=== PATIENT | male | born 1975 | race Caucasian/White ===

== ENCOUNTER 2019-05-26 17:57 | Emergency (ER) | payer SELFPAY ==
[2019-05-26 17:59] VITALS: BP 147/80; PULSE 88; RESP 16; TEMP 36.8; O2SAT 97
--- NOTE | 2019-05-26 18:05 | ED.GENADUL_ITS ---
Discharge Plan Disposition Patient Disposition: HOME Condition: Stable Discharge Details Chief Complaint: Abd Prob Clinical Impression: Abscess Primary Care Provider: Ifeanyi Strickland ED Provider: Bob Flores Home Meds and New Rx's Prescriptions: New sulfamethoxazole-trimethoprim [Bactrim DS] 800-160 mg tablet 1 tab PO BID Qty: 14 RF: 0 Discharge Instructions Instructions: Abscess (ED) Additional Instructions: You have a very small fluid collection that is likely an infection follow up with your primary care provider within 1 week if you feel more ill, have severe worsening pain or fevers return to the emergency department Medical Decision Making <Merlin Cuevas MD - Last Filed: 05/26/19 19:45> 43-year-old male presents from home complaining of left groin painful lump. 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 He denies significant strain. He has not had a fever or vomiting. He is slightly hypertensive. Left groin reveals mass along the inguinal canal. Differential diagnosis includes inguinal hernia, mass. Screening laboratories obtained and CT scan ordered. Laboratories reveal a normal CBC, unremarkable chemistries. Urinalysis is negative. At the time of this dictation/change of shift, patient CT images are pending and the case was signed out to Dr. Flores please see his note regarding details of final impression. <Bob Flores MD - Last Filed: 05/26/19 21:47> Patient's ct shows small [id number] fluid collection vs abscess has mild pain and no air to suggest nec fasc. Not large enough to drain. Will place on antibiotics and have him f/u with pcp for recheck within a week, return precautions given Imaging Data Radiologic Study: Attestation: I personally reviewed and interpreted this imaging study as follows: Imaging: CT Scan Radiologist's impression: IMPRESSION: 1. Small subcutaneous fluid collection or abscess in the left inguinal crease inferiorly. See series 4, image 98. This is also evident on coronal series 6, image 35. 2. Old granulomatous splenic calcifications incidentally noted. HPI <Merlin Cuevas MD - Last Filed: 05/26/19 19:45> General Mode of arrival: ambulatory . Date/Time Provider Initiated Documentation: 05/26/19 17:57 . Limitations to Documentation: no limitations . Information obtained by: patient . History of Present Illness 43 year old M presents to the emergency department with the chief complaint of R groin lump, described as moderate, Quality is described as dull, and is localized to the left. Patient reports no radiation. Patient started experiencing this hour(s) and it has been constant. No relieving factors improve symptom(s), No exacerbating factors reported . Patient did receive the following treatments prior to arrival, none Related Data Home Medications Medication Instructions Recorded Confirmed sulfamethoxazole-trimethoprim 1 tab PO BID #14 tab 05/26/19 [Bactrim DS] Previous Rx's Medication Instructions Recorded sulfamethoxazole-trimethoprim 1 tab PO BID #14 tab 05/26/19 [Bactrim DS] Allergies Allergy/AdvReac Type Severity Reaction Status Date / Time clindamycin Allergy Unknown abdominal Unverified 05/26/19 18:03 pain codeine AdvReac Intermediate nausea/vomo Unverified 05/26/19 18:03 ting General Stated Complaint: Abd Prob ABHISHEK: 3 Review of Systems <Merlin Cuevas MD - Last Filed: 05/26/19 19:45> Narrative: 6 systems reviewed and otherwise negative. PFSH <Merlin Cuevas MD - Last Filed: 05/26/19 19:45> Social History Smoking/Tobacco Use Status: Current every day Drug use: Never Do you feel safe in your relationship?: Yes Exam <Merlin Cuevas MD - Last Filed: 05/26/19 19:45> Narrative Exam Narrative: GEN: awake, alert, oriented 3. Pleasant, well groomed, interactive. HEAD: Normocephalic, atraumatic ENT: Mucous membranes moist, oropharynx unremarkable, External ear exam unremarkable EYES: PERRL, EOMI NECK: Full ROM, no NETTA, no menigismus CHEST/RESP: Nontender, clear to auscultation bilateral, no wheeze/rhonchi/rales CARDIOVASCULAR: RRR, no murmur, rub corina. 2+ Rad pulse bilateral ABDOMEN: Soft, minimal lower quadrant tenderness without rebound, left groin mass that is palpable along the course of the inguinal canal. +Bowel sounds EXT: Full ROM, no edema, no rash Neuro: Grossly normal neurologic exam, conversant, interactive. Psych: Speech fluent, thoughts congruent, affect normal Course <Merlin Cuevas MD - Last Filed: 05/26/19 19:45> Vital Signs Vital signs: Vital Signs Temperature 36.8 C 05/26/19 17:59 Pulse 88 05/26/19 17:59 Respiratory Rate 16 05/26/19 17:59 Blood Pressure 147/80 H 05/26/19 17:59 Pulse Oximetry 97 05/26/19 17:59 Temperature 36.8 C 05/26/19 17:59 Temperature Source Skin 05/26/19 17:59 Pulse 88 05/26/19 17:59 Respiratory Rate 16 05/26/19 17:59 Blood Pressure 147/80 H 05/26/19 17:59 Blood Pressure Position Sitting 05/26/19 17:59 Pulse Oximetry 97 05/26/19 17:59 Oxygen Delivery Method Room Air 05/26/19 17:59 Oxygen Flow Rate 0 05/26/19 17:59 Pain Level 10 05/26/19 17:59 Comment 05/26/19 17:59 Sign Out <Merlin Cuevas MD - Last Filed: 05/26/19 19:45> Sign Out Data: Sign Out Comment: followup CT Last updated by Merlin Cuevas MD at 05/26/19 19:53
[2019-05-26 18:21] LABS: Bilirubin Negative (Negative); Blood Negative (Negative); Clarity Clear (Clear); Glucose Negative (Negative); Ketones Negative (Negative); Leukocyte Esterase Negative (Negative); Nitrite Negative (Negative); Specific Gravity <= 1.005 (1.005-1.025); Urobilinogen 0.2 EU/dL (Up TO 0.2)
[2019-05-26 18:52] LABS: Abs Immature Grans 0.02 k/cumm (0.0-0.09); Absolute Basophil Count 0.02 k/cumm (0.0-0.2); Absolute Eosinophil Count 0.05 k/cumm (0.0-0.7); Absolute Lymphocyte Count 2.07 k/cumm (1.2-3.4); Absolute Monocyte Count 0.51 k/cumm (0.11-0.7); Absolute Neutrophil Count 6.87 k/cumm (1.2-6.7); Basophils % 0.2; Eosinophils % 0.5; HCT 42.8 % (40.0-50.0); HGB 14.5 g/dL (13.5-17.5); Immature Grans % 0.2 %; Lymphocytes % 21.7; Mean Corp. HGB Concentration 33.9 g/dL (32.0-36.0); Mean Corpuscular Volume 88.4 fL (80-95); Mean Platelet Volume 9.9 fL (8.0-11.0); Monocytes % 5.3; Neutrophils % 72.1; Platelet Count 316 x1000/uL (130-400); RBC 4.84 m/cumm (4.50-6.00); RBC Distribution Width 13.2 % (11.8-14.1); White Blood Cell Count 9.54 k/cumm (4.4-10.8)
[2019-05-26] MEDS: Normal Saline 1,000 ML 125 ML IV (19:00)
[2019-05-26 19:11] LABS: ALT 19 U/L (16-63); AST 17 U/L (15-37); Albumin 3.8 g/dL (3.4-5.0); Alkaline Phosphatase 83 U/L (46-116); Anion Gap 8.3 mmol/L (3-11); BUN 9 mg/dL (7-18); Bilirubin, Total 0.6 mg/dL (0.2-1.0); CO2 28.7 mmol/L (21.0-32.0); CREATININE 0.87 mg/dL (0.70-1.30); Calcium 8.6 mg/dL (8.5-10.1); Chloride 103 mmol/L (98-107); Glucose 91 mg/dL (74-106); Potassium 3.8 mmol/L (3.5-5.1); Sodium 140 mmol/L (136-145); Total Protein 7.3 g/dL (6.4-8.2)
[2019-05-26] MEDS: Ketorolac 15 MG/ML VIAL IVP (19:15)
[2019-05-26] MEDS: Normal Saline Flush 10 ML SYR IVP ×2 (19:26→20:46)
--- NOTE | 2019-05-26 20:35 | DI.CT_ITS ---
EXAM: CT ABDOMEN PELVIS W CLINICAL HISTORY: Left inguinal painful mass. TECHNIQUE: Imaging Protocol: Axial computed tomography images with coronal and sagittal reformatted images were created and reviewed CONTRAST MATERIAL: Intravenous: Omnipaque 350 Contrast volume:100 ml Oral: yes COMPARISON: CHEST ABD PELVIS WO CONTRAST from 04/01/2011 FINDINGS: ABDOMEN: Lung Bases: Normal where visualized. Liver: Normal density. No measurable mass. Gallbladder and biliary tract: No radiodense calculus or dilation. Pancreas: Normal density, no abnormal calcifications or inflammatory process. Spleen: Calcified granulomas. Kidneys: Normal size, contour and axis. No radiodense stones or obstructive uropathy. No masses seen. Adrenal glands: No masses seen. Abdominal Aorta: Abdominal portion non-dilated. PELVIS: Bladder: Symmetric distention, no gross wall thickening. Bowel: No obstruction or bowel wall thickening. Peritoneal cavity: No ascites, collection or mesenteric inflammatory response. Bones: Within normal limits. Reproductive organs: Within normal limits. Lymph nodes: Unremarkable. There is a 2.2 x 1.9 centimeter fluid collection with rim enhancement in the subcutaneous fat of the left inguinal crease with some surrounding inflammation. Findings are consistent with an abscess. Impression: 2.2 centimeters subcutaneous collection in the left inguinal crease, consistent with a small abscess. No abnormality is seen within the abdomen or pelvis. DATA REPOSITORY: All CT scans at this facility are submitted to the National Radiology Data Registry (NRDR) Dose Index Registry (DIR) with the [employer] ([employer]). RADIATION OPTIMIZATION: All CT scans at this facility use at least one of these dose optimization te chniques: automated exposure control; mA and/or kV adjustment per patient size (includes targeted exa ms where dose is matched to clinical indication); or iterative reconstruction.
[2019-05-26] MEDS: Omnipaque 350 MG/ML 100 ML BTL IJ (20:44)
[2019-05-26] MEDS: Breeza Beverage 473 ML BTL PO ×2 (20:45→20:46)
[2019-05-26] MEDS: Omnipaque 350 MG/ML 50 ML BTL IJ (20:45)
[2019-05-26] MEDS: Normal Saline - Diluent 50 ML VIAL IV (20:46)
--- NOTE | 2019-05-26 21:09 | DI.VRAD_ITS ---
PROCEDURE INFORMATION: Exam: CT Abdomen And Pelvis With Contrast Exam date and time: 05/26/2019 8:36 PM Age: 43 years old Clinical indication: Abdominal pain; Localized; Left lower quadrant (llq); Additional info: PT feels pain and swelling in left lower inguinal/groin region TECHNIQUE: Imaging protocol: Computed tomography of the abdomen and pelvis with intravenous contrast. Radiation optimization: All CT scans at this facility use at least one of these dose optimization techniques: automated exposure control; mA and/or kV adjustment per patient size (includes targeted exams where dose is matched to clinical indication); or iterative reconstruction. Contrast material: [id number]; Contrast volume: 100 ml; Contrast route: IV RAC 18G; Other contrast: Oral, [id number], 50; COMPARISON: No relevant prior studies available. FINDINGS: Liver: Normal. No mass. Gallbladder and bile ducts: Normal. No calcified stones. No ductal dilation. Pancreas: Normal. No ductal dilation. Spleen: Old granulomatous splenic calcifications. Adrenals: Normal. No mass. Kidneys and ureters: Normal. No hydronephrosis. Stomach and bowel: Unremarkable. No obstruction. No mucosal thickening. Appendix: No evidence of appendicitis. Intraperitoneal space: Unremarkable. No free air. No significant fluid collection. Vasculature: Unremarkable. No abdominal aortic aneurysm. Lymph nodes: Unremarkable. No enlarged lymph nodes. Bladder: Unremarkable as visualized. Reproductive: Unremarkable as visualized. Bones/joints: Unremarkable. No acute fracture. Soft tissues: Inferior left inguinal subcutaneous fluid collection measuring 22 x 19 mm. This may represent a small subcutaneous abscess. Minor surrounding fatty inflammation. This is best seen on series 4, image 98. Coronal series 6, image 35. No inguinal hernia. IMPRESSION: 1. Small subcutaneous fluid collection or abscess in the left inguinal crease inferiorly. See series 4, image 98. This is also evident on coronal series 6, image 35. 2. Old granulomatous splenic calcifications incidentally noted. Dictated and Authenticated by: Jaren Montano MD. Ordering:CATHY Boyer MD
[2019-05-26] MEDS: Sulfameth/Trimeth DS TAB 1 TAB PO (21:54)
[2019-05-26] MEDS: Cephalexin 500 MG CAP PO (21:55)
--- NOTE | 2019-05-29 03:32 | NUR.NOTE ---
Nursing Note: Referral faxed to PCP for follow up. Cassie Rosas.
== END 2019-05-26 22:00 | disposition home or self-care (01) ==
PROVIDERS: Emergency Medicine; Emergency Provider Emergency Medicine; PCP Family Medicine
DX: L02.214 Cutaneous abscess of groin (principal); R10.32 Left lower quadrant pain
CPT/HCPCS: 36415; 80053; 96361; 96374; 99285; 74177; 81003; 85025; 99284; J1885; J3490; Q9967

== ENCOUNTER 2020-04-14 02:59 | Outpatient (CLI) | payer MEDICAID, SELFPAY ==
--- NOTE | 2020-04-14 16:16 | DI.RAD_ITS ---
EXAM: XR SHOULDER RT COMPLETE 2+V CLINICAL HISTORY: RT SHOULDER PAIN, M25.511. TECHNIQUE: 2D digital imaging was performed. COMPARISON: CR ACROMIO CLAVICULAR JOINTS from 01/04/2015 FINDINGS: There is no evidence of fracture or dislocation no abnormal soft tissue calcifications. Subacromial space appears unremarkable. No osseous lesions. AC joint unremarkable. No evidence of os acromial. Sign rib IMPRESSION: No significant radiographic findings. DATA REPOSITORY: RADIATION DOSE DELIVERED:
--- NOTE | 2020-04-14 16:23 | DI.VRAD_ITS ---
PROCEDURE INFORMATION: Exam: XR Right Shoulder Exam date and time: 04/14/2020 8:46 AM Age: 44 years old Clinical indication: Pain; Shoulder; Right TECHNIQUE: Imaging protocol: XR Right shoulder. Views: 2 or more views. COMPARISON: CR RIGHT SHOULDER COMPLETE 01/04/2015 9:45 AM FINDINGS: Bones/joints: Degenerative changes in the acromioclavicular joint and glenohumeral joint. There is no evidence of acute fracture.There is no evidence of malalignment or dislocation. Soft tissues: Normal. IMPRESSION: There is no evidence of acute fracture.There is no evidence of malalignment or dislocation. Dictated and Authenticated by: Louie Winkler MD. Ordering:SLICK Hager MD
== END 2020-04-14 03:19 ==
PROVIDERS: PCP Family Medicine; Visit Provider Physician Assistant
DX: M25.511 Pain in right shoulder (principal)
CPT/HCPCS: 73030

== ENCOUNTER 2020-04-26 01:59 | Outpatient (CLI) | payer MEDICAID, SELFPAY ==
--- NOTE | 2020-04-26 | DI.MRI_ITS ---
EXAM: MR UPPER JOINT RT WO CLINICAL HISTORY: RT SHOULDER PAIN, M25.511. TECHNIQUE: Multiplanar multisequence MRI was performed. COMPARISON: Plain films dated 14 April 2020 FINDINGS: A the AC joint shows mild degenerative changes with mild inferior spurring. There is mild spurring at the tip of the acromion. There is a small amount of fluid in the subacromial subdeltoid bursa. t here is a small focal tear in the anterior, distal aspect of the supraspinatus tendon. There is thic kening of the supraspinatus tendon. There is no muscle atrophy. The infraspinatus, subscapularis, t eres minor and biceps tendons appear intact. Labrum is within normal limits. There is some edema in the humeral head seen anteriorly near the greater tuberosity. This could represent a bone contusion or represent degenerative changes. IMPRESSION: Small focal tear in the anterior supraspinatus tendon. Question of a contusion of the anterior humer al head. DATA REPOSITORY:
== END 2020-04-26 02:00 ==
LOC: DI 01:59
PROVIDERS: PCP Family Medicine; Visit Provider Physician Assistant
DX: M75.101 Unspecified rotator cuff tear or rupture of right shoulder, not specified as traumatic (principal)
CPT/HCPCS: 73221

== ENCOUNTER 2021-03-11 14:54 | Emergency (ER) | payer MEDICAID, SELFPAY ==
[2021-03-11 15:05] VITALS: BP 128/85; PULSE 90; RESP 18; TEMP 36.8; O2SAT 99
[2021-03-11] MEDS: Ibuprofen 600 MG TAB PO (16:05)
[2021-03-11] MEDS: oxyCODONE 5 MG TAB PO (16:30)
--- NOTE | 2021-03-11 16:34 | ED.GENADUL_ITS ---
Discharge Plan Disposition Patient Disposition: HOME Condition: Improving Discharge Details Clinical Impression: Abscess of perineum Primary Care Provider: Ifeanyi Strickland ED Provider: Orly Hart Home Meds and New Rx's Prescriptions: New cephalexin 500 mg capsule 500 mg PO QID 7 Days Qty: 28 RF: 0 sulfamethoxazole-trimethoprim [Bactrim DS] 800-160 mg tablet 2 tab PO BID 7 Days Qty: 28 RF: 0 Continued acetaminophen 500 mg Tablet 1,000 mg PO PRN PRNRF: 0 Discharge Instructions Instructions: Abscess (ED) Additional Instructions: You were noted to have an abscess on exam today. An abscess is a collection of pus that is best treated with incision and drainage which was performed in the emergency department today. Due to the surrounding redness in the area of the abscess, you are also being treated with oral antibiotics. A prescription for 2 antibiotics have been sent electronically to your pharmacy. You were also sent home with antibiotics to take until you can waste picker your prescriptions tomorrow. Take both of these antibiotics as directed until finished. Alternate tylenol and motrin as needed and directed for pain. Return to the emergency department in 2 days for wound check and packing removal. Return immediately to the emergency department if you develop any worsening or new concerning symptoms. Discharge Data Discharge Date/Time-TO BE ENTERED AT DEPARTURE: 03/11/21 16:53 Discharge Physician: Orly Hart Medical Decision Making 45-year-old male presents with boil in his groin for 4 days. There is a 2 x 2 centimeter fluctuant abscess with 3 cm area of surrounding erythema noted to the right side of the perineum right below the scrotum. There is no evidence of necrotizing fasciitis. Patient appears uncomfortable but nontoxic. Do not see indication for lab work or imaging at this time. Patient was given a dose of ibuprofen and oxycodone for his pain. The area was cleaned with Betadine and anesthetized with 10 cc of lidocaine with epinephrine. The area of fluctuance was incised with a #11 blade with large amount of drainage and immediate relief of pain. The area was irrigated with normal saline and packed with 1/4 iodoform gauze. Dressing placed and remained clean dry and intact. Patient has an adverse GI reaction to clindamycin. Will cover with Keflex and Bactrim of which she was given doses here and bottles to go and prescriptions sent electronically to his pharmacy. Advised to return to the ED in 2 days for packing removal and wound check. Advised to keep the area clean and dry and take antibiotics until finished. Usual and customary return precautions given prior to discharge. Medical Records Medical records reviewed: Yes I reviewed the patient's medical records. HPI General Mode of arrival: ambulatory . Date/Time Provider Initiated Documentation: 03/11/21 15:19 . Limitations to Documentation: no limitations . Information obtained by: patient . HPI Narrative: Patient is a 45-year-old male who presents with boil in his groin for the past 4 days. He states he has been soaking in Epson salt and tried to pop the area himself but without relief and is getting progressively worse. 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 He denies any shaving in this area. He denies any fever, nausea, vomiting, abdominal pain, urinary symptoms, constipation or diarrhea. He denies any change in his bowel or bladder habits. Related Data Home Medications Medication Instructions Recorded Confirmed acetaminophen 1,000 mg PO PRN PRN 03/11/21 03/11/21 cephalexin 500 mg PO QID 7 Days #28 cap 03/11/21 sulfamethoxazole-trimethoprim 2 tab PO BID 7 Days #28 tab 03/11/21 [Bactrim DS] Previous Rx's Medication Instructions Recorded cephalexin 500 mg PO QID 7 Days #28 cap 03/11/21 sulfamethoxazole-trimethoprim 2 tab PO BID 7 Days #28 tab 03/11/21 [Bactrim DS] Allergies Allergy/AdvReac Type Severity Reaction Status Date / Time clindamycin Allergy Unknown abdominal Unverified 03/11/21 15:08 pain codeine AdvReac Intermediate nausea/vomo Unverified 03/11/21 15:08 ting General Stated Complaint: Cellulitis ABHISHEK: 4 Review of Systems All systems reviewed & are unremarkable except as noted in HPI and below Constitutional Constitutional: Reports as per HPI, Denies chills and Denies fever(s) Eyes Eyes: Denies blurry vision ENT Ears, Nose, Mouth, and Throat: Denies dizziness, Denies sore throat and Denies throat swelling Cardiovascular Cardiovascular: Denies chest pain and Denies dyspnea Respiratory Respiratory: Denies cough and Denies dyspnea Gastrointestinal Gastrointestinal: Denies abdominal pain, Denies diarrhea and Denies vomiting Genitourinary Genitourinary: Denies hematuria and Denies dysuria Musculoskeletal Musculoskeletal: Denies back pain and Denies numbness Integumentary/Breasts Skin/Breast: Reports lesions and Denies rash Neurologic Neurologic: Denies dizziness, Denies localized weakness and Denies numbness Allergic/Immunologic Allergic/Immunologic: Denies throat swelling PFSH All Active Problems (Updated 03/11/21 @ 17:10 by Orly Hart DO) Abscess of perineum (Acute) Medical History (Updated 03/11/21 @ 17:10 by Orly Hart DO) GERD (gastroesophageal reflux disease) Surgical History (Updated 03/11/21 @ 17:10 by Orly Hart DO) H/O wisdom tooth extraction History of surgical removal of pilonidal cyst Social History Smoking/Tobacco Use Status: Current every day Smoking risk assessment performed?: Yes Alcohol Intake: never Drug use: Never Substance use type: does not use Do you feel safe at home: Yes Do you feel safe in your relationship?: Yes Exam Const General: cooperative, healthy appearing and no acute distress HENMT Head: normal to inspection Face and sinus: normal facial exam Eyes General: appearance normal, both eyes and all related structures EOM: EOM intact bilaterally Neck Neck: normal visual inspection and No submandibular swelling Lymphatic: no lymphadenopathy noted Chest Chest: normal inspection of the chest and no tenderness Resp Effort & Inspection: normal respiratory effort and able to speak in complete sentences Auscultation: clear to auscultation bilaterally Cardio Rate: regular rate Rhythm: regular rhythm GI Inspection: normal to inspection Palpation: soft, not firm, not rigid and nontender Auscultation: normal bowel sounds Male genitals images: 1. There is an approximate 2 x 2 centimeter area of fluctuance with 3 x 3 cm area of induration and erythema that is located directly below the left scrotum within the perineum. There is no obvious pus drainage or bleeding at this time Neuro General: patient alert, patient awake and patient oriented x3 Cognition: normal cognition Speech: speech normal Motor: muscle tone normal throughout Sensory Exam: no sensory deficits noted Extrem General: normal to inspection, full ROM, capillary refill normal, no calf tenderness bilaterally and no edema Psych Appearance: grossly normal Mental Status: mental status grossly normal Speech and Movement: speech and movement normal Affect: normal affect Course Vital Signs Vital signs: Vital Signs Temperature 98.2 F 03/11/21 15:05 Pulse 90 03/11/21 15:05 Respiratory Rate 18 03/11/21 15:05 Blood Pressure 128/85 03/11/21 15:05 Pulse Oximetry 99 03/11/21 15:05 Temperature 98.2 F 03/11/21 15:05 Temperature Source Temporal Artery Scan 03/11/21 15:05 Pulse 90 03/11/21 15:05 Respiratory Rate 18 03/11/21 15:05 Respiratory Effort 03/11/21 15:23 Blood Pressure 128/85 03/11/21 15:05 Blood Pressure Position Standing 03/11/21 15:05 Pulse Oximetry 99 03/11/21 15:05 Oxygen Delivery Method Room Air 03/11/21 15:05 Oxygen Flow Rate 0 03/11/21 15:05 Procedures Abscess I/D Site: Other (Perineum) Side (if applicable): Right Local Anesthetic: Lidocaine 1% and With Epi Amount of anesthesia used (mL): 10 Technique: Incised with #11 Blade Amount of fluid expressed (mL): 8 Irrigation: Yes Packing used?: Iodoform
[2021-03-11] MEDS: Cephalexin 500 MG CAP PO (16:35)
[2021-03-11] MEDS: Sulfameth/Trimeth DS TAB 2 TAB PO (16:35)
[2021-03-11] MEDS: Cephalexin 500 MG CAP, 4 CAPS/BTL PO (16:44)
[2021-03-11] MEDS: Sulfameth/Trimeth DS, 2 TABS/BTL 1 TAB PO (16:50)
== END 2021-03-11 16:53 | disposition home or self-care (01) ==
PROVIDERS: Emergency Provider Physician Assistant; PCP Family Medicine
DX: L02.215 Cutaneous abscess of perineum (principal)
CPT/HCPCS: 10060

== ENCOUNTER 2021-04-02 07:50 | Outpatient (REF) | payer SELFPAY ==
[2021-04-02 15:18] LABS: Anion Gap 7.4 mmol/L (3-11); BUN 12 mg/dL (7-18); CO2 27.6 mmol/L (21.0-32.0); CREATININE 0.9 mg/dL (0.70-1.30); Calcium 8.9 mg/dL (8.5-10.1); Calculated LDL 141 mg/dL (<100); Chloride 104 mmol/L (98-107); Cholesterol 193 mg/dL (<200); Glucose 106 mg/dL (74-106); HDL Cholesterol 37 mg/dL (40-60); Potassium 4.3 mmol/L (3.5-5.1); Sodium 139 mmol/L (136-145); Triglyceride 79 mg/dL (<150)
== END 2021-04-02 07:51 | disposition home or self-care (01) ==
LOC: NCHCN 07:50
PROVIDERS: PCP Family Medicine; Visit Provider Physician Assistant
DX: Z00.00 Encounter for general adult medical examination without abnormal findings (principal)
CPT/HCPCS: 80048; 80061

== ENCOUNTER 2021-11-15 10:30 | Emergency (ER) | payer MEDICAID, SELFPAY ==
[2021-11-15 10:36] VITALS: BP 113/80; PULSE 85; RESP 18; TEMP 36.8; O2SAT 99
--- NOTE | 2021-11-15 12:03 | DI.RAD_ITS ---
Exam(s) XR CHEST 2V PA LATERAL EXAM: XR CHEST 2V PA LATERAL CLINICAL HISTORY: shortness of breath, r/o acute disease. TECHNIQUE: 2D digital imaging was performed. COMPARISON: CR CHEST 2 VIEWS PA,LAT from 02/28/2016 FINDINGS: 2 views: Heart size is normal. The mediastinum is not widened. Lungs are clear. No infiltrates nor pleural effusions. IMPRESSION: No acute pulmonary findings. DATA REPOSITORY: RADIATION DOSE DELIVERED:
[2021-11-15 12:21] VITALS: BP 117/78; PULSE 66; TEMP 36.4; O2SAT 97
--- NOTE | 2021-11-15 14:15 | RT.EKG_ITS ---
APPROVED REPORT Exam: Resting ECG Reason for Exam: shortness of breath Patient Location: E HR:65 bpm ECG Measurements Heart Rate 65 AXIS WI 172 P -34 QRSd 84 QRS -14 QT 371 T 32 QTc 388 Conclusion Sinus rhythm...normal P axis, V-rate 60- 99 ST elev, probable normal early repol pattern...ST elevation, age<55. Sinus. Benign early repolarization. No STEMI. I have reviewed and interpreted ECG and agree with software generated interpretation.
--- NOTE | 2021-11-15 14:33 | ED.GENADUL_ITS ---
Discharge Plan Disposition Patient Disposition: ELOPED Condition: Stable Discharge Details Chief Complaint: RespSymp Clinical Impression: Left before treatment completed, Shortness of breath Primary Care Provider: Ifeanyi Strickland ED Provider: Orly Hart Home Meds and New Rx's Prescriptions: No Action acetaminophen 500 mg Tablet 1,000 mg PO PRN PRN Discharge Data Discharge Date/Time-TO BE ENTERED AT DEPARTURE: 11/15/21 16:37 Medical Decision Making 46-year-old male with a history of GERD and chronic tobacco smoker on ~quit 3 months ago presents for shortness of breath for the past month, worse today. Vitals within normal limits. Patient arrived during high volume and acuity and referred for chest x-ray which was unremarkable. Upon assessment at bedside, lungs are clear bilaterally with oxygen saturation 100% on room air. He appears comfortable. Differential diagnoses include anxiety, undiagnosed COPD, bronchitis. History and presentation appears less likely consistent with PE or ACS. Will refer for ekg, screening labs, D-dimer and give DuoNeb and reassess. Labs reviewed. White blood cell count 10. Troponin negative. D-dimer within normal limits. Attempted to reassess patient but he had eloped from the ED. There was a long delay in disposition due to high volume and acuity in the emergency department. Patient placed on care management list to arrange for a follow-up appointment with his primary care doctor for reevaluation and to return to the ER with any concerns. Medical Records Medical records reviewed: Yes I reviewed the patient's medical records. Imaging Data Radiologic Study: Radiologist's impression: XR CHEST 2V PA ? LATERAL CLINICAL HISTORY: ? shortness of breath, r/o acute disease. ? TECHNIQUE:? 2D digital imaging was performed. COMPARISON:? CR CHEST 2 VIEWS PA,LAT from 02/28/2016 FINDINGS: 2 views: Heart size is normal.? The mediastinum is not widened. Lungs are clear.? No infiltrates nor pleural effusions. IMPRESSION: No acute pulmonary findings. Lab Data Lab results reviewed: Yes I reviewed the patient's lab results. Labs: Laboratory Tests Range/Units 11/15/21 11/15/21 11/15/21 14:33 14:33 14:33 WBC (4.4-10.8) 10^3/uL 10.70 RBC (4.36-5.78) 10^6/uL 5.40 Hgb (13.5-17.5) g/dL 16.0 Hct (40.0-50.0) % 48.4 MCV (80-95) fL 90 MCH (27.0-33.0) pg 29.6 MCHC (32.0-36.0) % 33.1 RDW (11.8-14.1) % 12.6 Plt Count (130-400) 10^3/uL 303 MPV (8.0-11.0) fL 9.8 Immature Gran % 0.5 Neutrophils % 72.2 Lymphocytes % 22.2 Monocytes % 4.5 Eosinophils % 0.4 Basophils % 0.2 Nucleated RBC % (0.0-0.3) % 0.0 Absolute Neutrophils (1.2-6.7) 10^3/uL 7.73 H Absolute Lymphocytes (1.2-3.4) 10^3/uL 2.38 Absolute Monocytes (0.1-0.8) 10^3/uL 0.48 Absolute Eosinophils (0.0-0.7) 10^3/uL 0.04 Absolute Basophils (0.0-0.2) 10^3/uL 0.02 D-Dimer (<500) ng/mlFEU 243 Sodium (136-145) mmol/L 139 Potassium (3.5-5.1) mmol/L 4.3 Chloride (98-107) mmol/L 104 Carbon Dioxide (21.0-32.0) mmol/L 27.7 Anion Gap (3-11) mmol/L 7.3 BUN (7-18) mg/dL 12 Creatinine (0.70-1.30) mg/dL 0.8 Est GFR (CKD-EPI 2020) (mL/min/1.73m2) 111.22 Glucose (74-106) mg/dL 103 Calcium (8.5-10.1) mg/dL 9.2 Magnesium (1.8-2.4) mg/dL 1.9 Total Bilirubin (0.2-1.0) mg/dL 1.0 AST (15-37) U/L 25 ALT (16-63) U/L 40 Alkaline Phosphatase (46-116) U/L 84 Troponin I (<or=60) ng/L < 50 Total Protein (6.4-8.2) g/dL 8.1 Albumin (3.4-5.0) g/dL 4.2 ECG Data Attestation: I personally reviewed and interpreted this ECG (s) as follows: Interpretation: rate of 65, sinus, benign early repolarization, no stemi. HPI General Mode of arrival: ambulatory . Date/Time Provider Initiated Documentation: 11/15/21 10:31 . Limitations to Documentation: no limitations . Information obtained by: patient . HPI Narrative: Patient is a 46-year-old male who was a chronic tobacco smoker for approximately 20 years until he quit 3 months ago presents for shortness of breath for the past month, worse today. Patient states he was at work when he was in a meeting and felt suddenly short of breath. He states he began sweating and felt like he could not breathe. He denies any fever, cough or chest pain during this episode. Related Data Home Medications Medication Instructions Recorded Confirmed acetaminophen 500 mg tablet 1,000 mg PO PRN PRN 03/11/21 11/15/21 Allergies Allergy/AdvReac Type Severity Reaction Status Date / Time clindamycin Allergy Unknown abdominal Unverified 11/15/21 10:41 pain codeine AdvReac Intermediate nausea/vomo Unverified 11/15/21 10:41 ting General Stated Complaint: RespSymp ABHISHEK: 4 Review of Systems All systems reviewed & are unremarkable except as noted in HPI and below Constitutional Constitutional: Denies chills, Denies excessive sweating, Denies fatigue, Denies fever(s), Denies weakness and Denies weight loss Eyes Eyes: Reports system reviewed and no additional complaints, except as documented and Denies blurry vision ENT Ears, Nose, Mouth, and Throat: Denies vertigo, Denies dizziness, Denies otalgia, Denies nasal congestion, Denies sore throat and Denies throat swelling Cardiovascular Cardiovascular: Denies chest pain, Denies syncope, Denies rapid heart rate and Reports dyspnea Respiratory Respiratory: Denies chest congestion, Denies cough, Denies pain on inspiration and Reports dyspnea Gastrointestinal Gastrointestinal: Denies abdominal pain, Denies diarrhea and Denies vomiting Genitourinary Genitourinary: Denies hematuria, Denies dysuria and Denies flank pain Musculoskeletal Musculoskeletal: Denies back pain and Denies joint swelling Integumentary/Breasts Skin/Breast: Denies lesions and Denies rash Neurologic Neurologic: Denies behavioral changes, Denies confusion, Denies vertigo, Denies dizziness, Denies syncope, Denies localized weakness and Denies weakness Psychiatric Psychiatric: Denies behavioral changes, Denies confusion and Denies depression Endocrine Endocrine: Denies excessive sweating and Denies fatigue Hematologic/Lymphatic Hematologic/Lymphatic: Denies easy bruising and Denies lymphadenopathy Allergic/Immunologic Allergic/Immunologic: Denies throat swelling PFSH All Active Problems (Updated 11/15/21 @ 16:37 by Orly Hart DO) Left before treatment completed (Acute) Shortness of breath (Acute) Medical History (Updated 11/15/21 @ 16:37 by Orly Hart DO) GERD (gastroesophageal reflux disease) Surgical History (Updated 03/11/21 @ 17:10 by Orly Hart DO) H/O wisdom tooth extraction History of surgical removal of pilonidal cyst Social History Smoking/Tobacco Use Status: Former Tobacco Use Quit Date: 08/15/21 Smoking risk assessment performed?: Yes Alcohol Intake: never Drug use: Never Substance use type: does not use Do you feel safe at home: Yes Do you feel safe in your relationship?: Yes Exam Const General: cooperative and no acute distress Orientation: alert, awake and oriented x3 HENMT Head: normal to inspection Ears: hearing grossly normal bilaterally and external ears normal General nose exam: external nose normal Face and sinus: normal facial exam Mouth: oral mucosae normal Eyes General: appearance normal, both eyes and all related structures Eyelids: eyelids normal EOM: EOM intact bilaterally Neck Neck: normal visual inspection Lymphatic: no lymphadenopathy noted Chest Chest: normal inspection of the chest Resp Effort & Inspection: normal respiratory effort and able to speak in complete sentences Auscultation: clear to auscultation bilaterally Cardio Rate: regular rate Rhythm: regular rhythm GI Inspection: normal to inspection Palpation: soft, not firm, no guarding, no hepatosplenomegaly, no masses and nontender Auscultation: hypoactive bowel sounds Skin General skin exam: no rashes or lesions noted Neuro General: patient alert and patient awake Cognition: normal cognition Speech: speech normal Gait: normal gait Motor: muscle tone normal throughout Sensory Exam: no sensory deficits noted Extrem General: normal to inspection, full ROM and capillary refill normal Psych Appearance: grossly normal Mental Status: mental status grossly normal Speech and Movement: speech and movement normal Affect: normal affect Thought Process: normal Course Vital Signs Vital signs: Vital Signs Temperature 98.2 F 11/15/21 10:36 Pulse 85 11/15/21 10:36 Respiratory Rate 18 11/15/21 10:36 Blood Pressure 113/80 11/15/21 10:36 Pulse Oximetry 99 11/15/21 10:36 Temperature 97.6 F 11/15/21 12:21 Temperature Source Oral 11/15/21 12:21 Pulse 66 11/15/21 12:21 Respiratory Rate 18 11/15/21 10:36 Respiratory Effort Non-Labored 11/15/21 10:41 Respiratory Depth Normal 11/15/21 10:41 Blood Pressure 117/78 11/15/21 12:21 Blood Pressure Position Sitting 11/15/21 10:36 Pulse Oximetry 97 11/15/21 12:21 Oxygen Delivery Method Room Air 11/15/21 12:21 Oxygen Flow Rate 0 11/15/21 12:21 Pain Level 0 11/15/21 10:36
[2021-11-15 14:39] VITALS: RESP 1
[2021-11-15] MEDS: Albuterol/Ipratropium 3 ML UPD VIAL UPD (14:39)
[2021-11-15 14:40] LABS: Abs Immature Grans 0.05 10^3/uL (0.0-0.06); Absolute Basophil Count 0.02 10^3/uL (0.0-0.2); Absolute Eosinophil Count 0.04 10^3/uL (0.0-0.7); Absolute Lymphocyte Count 2.38 10^3/uL (1.2-3.4); Absolute Monocyte Count 0.48 10^3/uL (0.1-0.8); Absolute Neutrophil Count 7.73 10^3/uL (1.2-6.7); Basophils % 0.2; Eosinophils % 0.4; HCT 48.4 % (40.0-50.0); Immature Grans % 0.5; Lymphocytes % 22.2; MCH 29.6 pg (27.0-33.0); MCHC 33.1 % (32.0-36.0); MCV 90 fL (80-95); MPV 9.8 fL (8.0-11.0); Monocytes % 4.5; Neutrophils % 72.2; Platelet Count 303 10^3/uL (130-400); RDW 12.6 % (11.8-14.1); RDW-SD 41.6 fL
[2021-11-15 15:01] LABS: ALT 40 U/L (16-63); AST 25 U/L (15-37); Albumin 4.2 g/dL (3.4-5.0); Alkaline Phosphatase 84 U/L (46-116); Anion Gap 7.3 mmol/L (3-11); BUN 12 mg/dL (7-18); CO2 27.7 mmol/L (21.0-32.0); CREATININE 0.8 mg/dL (0.70-1.30); Calcium 9.2 mg/dL (8.5-10.1); Chloride 104 mmol/L (98-107); Estimated GFR 111.22 (mL/min/1.73m2); Glucose 103 mg/dL (74-106); Magnesium 1.9 mg/dL (1.8-2.4); Potassium 4.3 mmol/L (3.5-5.1); Sodium 139 mmol/L (136-145); Total Protein 8.1 g/dL (6.4-8.2); Troponin I < 50 ng/L (<or=60)
[2021-11-15 15:18] LABS: D-Dimer 243 ng/mlFEU (<500)
--- NOTE | 2021-11-16 12:08 | NUR.NOTE ---
Nursing Note: PT info faxed to PCP for follow up next week for Dyspnea, eloped ED visit. Leslie, ED
== END 2021-11-15 16:37 ==
PROVIDERS: Emergency Provider Physician Assistant; PCP Family Medicine
DX: R06.02 Shortness of breath (principal); Z53.20 Procedure and treatment not carried out because of patient's decision for unspecified reasons; Z87.891 Personal history of nicotine dependence
CPT/HCPCS: 80053; 93005; 94640; 99283; 71046; 83735; 84484; 85025; 85379; 93010; 99284; J7620

== ENCOUNTER 2023-04-05 19:07 | Emergency (ER) | payer MEDICAID, SELFPAY ==
[2023-04-05 19:14] VITALS: BP 128/87; PULSE 94; RESP 18; TEMP 37.4; O2SAT 99
--- NOTE | 2023-04-05 19:15 | DI.RAD_ITS ---
Exam(s) XR WRIST RT COMPL NAVICULAR EXAM: XR WRIST RT COMPL NAVICULAR CLINICAL HISTORY: R wrist pain. TECHNIQUE: 2D digital imaging was performed. Three views. COMPARISON: No exams were available for comparison FINDINGS: BONES: No acute fracture is present. No bony destructive lesion is seen. JOINTS: The carpal bones are normally aligned. SOFT TISSUE: Normal. IMPRESSION: Unremarkable radiographs of the right wrist. DATA REPOSITORY: RADIATION DOSE DELIVERED:
--- NOTE | 2023-04-05 20:08 | DI.VRAD_ITS ---
PROCEDURE INFORMATION: Exam: XR Right Wrist Exam date and time: 04/05/2023 7:37 PM Age: 47 years old Clinical indication: Other: RT wrist pain TECHNIQUE: Imaging protocol: Radiologic exam of the right wrist. Views: 3 or more views. COMPARISON: MR UPPER JOINT RT WO 04/26/2020 3:15 PM FINDINGS: Bones/joints: No suspicious osseous lytic or blastic lesion. No discrete or displaced fracture. No joint dislocation. Carpal alignment is preserved. Soft tissues: No focal abnormality. IMPRESSION: No acute fracture or dislocation. Dictated and Authenticated by: Olvin Garner MD. Ordering:ROSHAN Hoover MD
--- NOTE | 2023-04-05 20:40 | W.ED.GENAD ---
HPI General Date/Time Provider Initiated Documentation: 04/05/23 19:22. 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 Quality described as tingling in his first three fingers and thumb, gets stiff, aches, no radiation to redness, warmth to touch, complete numbness, inability to move hand, proximal arm pain. Severity is described as 6/10. Palliating factors include tried using a brace, felt stiffer. Provoking factors include nothing specific. Patient not anticoagulated. Related Data Home Medications Medication Instructions Recorded Confirmed acetaminophen 500 mg tablet 1,000 mg PO PRN PRN 03/11/21 04/05/23 omeprazole 40 mg capsule,delayed 40 mg PO DAILY 04/05/23 04/05/23 release Allergies Allergy/AdvReac Type Severity Reaction Status Date / Time clindamycin Allergy Unknown abdominal Unverified 11/15/21 10:41 pain codeine AdvReac Intermediate nausea/vomo Unverified 11/15/21 10:41 ting General Stated Complaint: Orthopedic ABHISHEK: 4 Review of Systems All systems reviewed & are unremarkable except as noted in HPI and below Exam Narrative Exam Narrative: GENERAL APPEARANCE: Well-nourished, non-toxic, awake and alert, atraumatic, no acute distress. SKIN: Warm, pink, dry, intact, without rashes/lesions/ulcerations. HEAD: Normocephalic, atraumatic, normal hair distribution for gender/age. EYES: Pupils PERRLA, EOMs intact without nystagmus, normal conjunctiva, no exudates on lids/lashes. ENT: Nares patent, no circumoral cyanosis, no facial swelling NECK: Supple, trachea midline, painless cervical ROM. LUNGS/CHEST: Non-labored respirations, normal A/P diameter, symmetrical expansion, no chest wall deformity HEART (CV/PV): Regular rate, R radial pulse 2+, no peripheral edema, no JVD. ABDOMEN: Soft, non-distended, no guarding. MSK: Normal ROM, no swelling/deformity to bilateral UEs or LEs, moving all extremities without weakness, no cyanosis, spine midline without tenderness, normal curvature. R Wrist: Tinnel's positive, TTP to R wrist at annular ligament, sensation intact to hand, R radial pulse 2+, no forearm tenderness, no erythema or warmth to touch, consistent with carpal tunnel syndrome NEURO: Mental Status AAOx4 - alert to person, place, time, events No facial droop, no forehead involvement. Motor: No focal weakness - strength 5/5 in bilateral UEs and LEs, proximal and distal, symmetric. Sensory: sensation intact to light touch globally. Gait normal: patient ambulated without ataxia into ED room. PSYCH: euthymic, cooperative, pleasant, appropriate speech Course Vital Signs Vital signs: Vital Signs Temperature 37.4 C 04/05/23 19:14 Pulse 94 H 04/05/23 19:14 Respiratory Rate 18 04/05/23 19:14 Blood Pressure 128/87 04/05/23 19:14 Pulse Oximetry 99 04/05/23 19:14 Temperature 37.4 C 04/05/23 19:14 Temperature Source Skin 04/05/23 19:14 Pulse 94 H 04/05/23 19:14 Respiratory Rate 18 04/05/23 19:14 Respiratory Effort Normal, Non-Labored 04/05/23 19:22 Blood Pressure 128/87 04/05/23 19:14 Blood Pressure Position Sitting 04/05/23 19:14 Pulse Oximetry 99 04/05/23 19:14 Oxygen Delivery Method Room Air 04/05/23 19:14 Oxygen Flow Rate 0 04/05/23 19:14 Pain Level 8 04/05/23 19:26 Medical Decision Making This dictation utilizes [id number] dictation software and may contain unedited grammatical errors. 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 Patients' medical history: noncontributory. Family and social history: noncontributory. Pertinent exam findings / vital signs include neurovascularly intact in the right hand, Tinel's positive at the carpal tunnel, no signs of trauma or infection. Differential / pathologies of concern include carpal tunnel syndrome, wrist sprain. Diagnostic studies of: -X-ray of the right wrist-no acute fracture. Interventions of: -Offered wrist bracing as our braces may be superior to but the patient tried at home, he excepted a thumb spica brace, counseled on therapeutic dosing Tylenol and ibuprofen and the need for follow-up with orthopedics. Findings not consistent with neurovascular compromise, fracture. Disposition of Right Carpal Tunnel Syndrome. Patient verbalized understanding of the plan and return to ED criteria and engaged in shared decision making. Medical Records Medical records reviewed: Yes I reviewed the patient's medical records. Imaging Data Radiologic Study: Attestation: I personally reviewed and interpreted this imaging study as follows: Imaging: X-Ray Radiologist's impression: Exam: XR Right Wrist Exam date and time: 04/05/2023 7:37 PM Age: 47 years old Clinical indication: Other: RT wrist pain TECHNIQUE: Imaging protocol: Radiologic exam of the right wrist. Views: 3 or more views. COMPARISON: MR UPPER JOINT RT WO 04/26/2020 3:15 PM FINDINGS: Bones/joints: No suspicious osseous lytic or blastic lesion. No discrete or displaced fracture. No joint dislocation. Carpal alignment is preserved. Soft tissues: No focal abnormality. IMPRESSION: No acute fracture or dislocation. Dictated and Authenticated by: Olvin Garner MD. Ordering:ROSHAN Hoover MD Quality:SDOH Health Related Social Needs: No Data to Display PFSH All Active Problems (Updated 04/05/23 @ 20:41 by MICHELLE Pillai) Right carpal tunnel syndrome (Acute) Medical History (Updated 04/05/23 @ 20:41 by MICHELLE Pillai) GERD (gastroesophageal reflux disease) Surgical History (Updated 03/11/21 @ 17:10 by Orly Hart DO) H/O wisdom tooth extraction History of surgical removal of pilonidal cyst Social History Smoking/Tobacco Use Status: Former Tobacco Use Quit Date: 08/15/21 Smoking risk assessment performed?: Yes Alcohol Intake: never Drug use: Daily Substance use type: marijuana Do you feel safe at home: Yes Do you feel safe in your relationship?: Yes Discharge Plan Disposition Patient Disposition: Home Condition: Stable Discharge Details Clinical Impression: Right carpal tunnel syndrome Primary Care Provider: Ifeanyi Strickland ED Provider: Kiko Mancini Meds and New Rx's Prescriptions: Continued omeprazole 40 mg capsule,delayed release(DR/EC) 40 mg PO DAILY acetaminophen 500 mg Tablet 1,000 mg PO PRN PRN Discharge Instructions Instructions: Carpal Tunnel Surgery (DC) Additional Instructions: You were seen in the emergency department for your carpal tunnel syndrome of your right wrist. Please continue to wear your wrist brace at night at minimum. Take Tylenol and ibuprofen, you may try applying topical Voltaren gel [id number] and topical anti-inflammatory to your right wrist. I am forwarding her chart to the orthopedic clinic, you may need to be evaluated there in the short-term for surgical evaluation. Please return for any severe increase in pain, inability to move your hand, any coolness to touch with pain in your fingers. Referrals: [facility] [Provider Group] Ifeanyi Strickland [Primary Care Provider] - Discharge Data Discharge Date/Time-TO BE ENTERED AT DEPARTURE: 04/05/23 20:54
--- NOTE | 2023-04-06 10:51 | NUR.NOTE ---
Accessed chart to complete paperwork for [facility] billing. Nursing Note:
== END 2023-04-05 20:54 | disposition home or self-care (01) ==
PROVIDERS: Emergency Provider Physician Assistant; PCP Family Medicine
DX: M25.531 Pain in right wrist (principal); G56.01 Carpal tunnel syndrome, right upper limb
CPT/HCPCS: 99283; 73110

== ENCOUNTER 2023-04-09 08:25 | Outpatient (REF) | payer MEDICAID, SELFPAY ==
[2023-04-09 15:38] LABS: ALT 21 U/L (16-63); AST 19 U/L (15-37); Albumin 3.4 g/dL (3.4-5.0); Alkaline Phosphatase 82 U/L (46-116); BUN 14 mg/dL (7-18); Bilirubin, Total 0.3 mg/dL (0.2-1.0); CREATININE 0.9 mg/dL (0.70-1.30); Calcium 8.6 mg/dL (8.5-10.1); Calculated LDL 98 mg/dL (<100); Chloride 104 mmol/L (98-107); Cholesterol 152 mg/dL (<200); Estimated GFR 106.67 (mL/min/1.73m2); Glucose 107 mg/dL (74-106); HDL Cholesterol 37 mg/dL (40-60); Potassium 4.9 mmol/L (3.5-5.1); Sodium 139 mmol/L (136-145); Total Protein 6.6 g/dL (6.4-8.2); Triglyceride 86 mg/dL (<150)
== END 2023-04-09 08:26 | disposition home or self-care (01) ==
LOC: NCHCN 08:25
PROVIDERS: PCP Family Medicine; Visit Provider Physician Assistant
DX: E78.5 Hyperlipidemia, unspecified (principal)
CPT/HCPCS: 80053; 80061

== ENCOUNTER 2023-10-13 05:53 | Emergency (ER) | payer SELFPAY ==
[2023-10-13] VITALS (108 sets, daily range): BP systolic 104–129; BP diastolic 67–93; PULSE 42–75; RESP 9–32; TEMP 36.6; O2SAT 95–100
--- NOTE | 2023-10-13 05:45 | DI.RAD_ITS ---
Exam(s) XR PORTABLE CHEST AP EXAM: XR PORTABLE CHEST AP CLINICAL HISTORY: chest discomfort TECHNIQUE: 2D digital imaging was performed. COMPARISON: No exams were available for comparison FINDINGS: LUNGS: Clear. No pleural abnormality seen. HEART: Normal size. AORTA: Normal diameter. BONES: Unremarkable for age. Soft tissues: Unremarkable. IMPRESSION: No acute findings. DATA REPOSITORY: RADIATION DOSE DELIVERED:
--- NOTE | 2023-10-13 05:45 | RT.EKG_ITS ---
APPROVED REPORT Exam: Resting ECG Reason for Exam: chest pain Patient Location: E HR:57 bpm ECG Measurements Heart Rate 57 AXIS HI 174 P 55 QRSd 101 QRS -6 QT 411 T 29 QTc 399 Conclusion Sinus bradycardia...rate< 60 ST elev, probable normal early repol pattern...ST elevation, age<55 Physician: Sinus bradycardia, rate 57, less than a millimeter of elevation in V2, no reciprocal depre ssions. Inverted T wave present in lead III. No STEMI.
[2023-10-13] MEDS: Aspirin 81 MG CHEW 324 MG CH (06:06)
[2023-10-13] MEDS: Normal Saline 500 ML IV (06:07)
[2023-10-13 06:09] LABS: Abs Immature Grans 0.02 10^3/uL (0.0-0.06); Absolute Basophil Count 0.02 10^3/uL (0.0-0.2); Absolute Eosinophil Count 0.09 10^3/uL (0.0-0.7); Absolute Lymphocyte Count 2.08 10^3/uL (1.2-3.4); Absolute Monocyte Count 0.45 10^3/uL (0.1-0.8); Absolute Neutrophil Count 5.18 10^3/uL (1.2-6.7); Basophils % 0.3 %; Eosinophils % 1.1 %; HCT 48.6 % (40.0-50.0); HGB 16.1 g/dL (13.5-17.5); Immature Grans % 0.3 %; Lymphocytes % 26.5 %; MCH 30.1 pg (27.0-33.0); MCHC 33.1 % (32.0-36.0); MCV 91 fL (80-95); MPV 9.2 fL (8.0-11.0); Monocytes % 5.7 %; Neutrophils % 66.1 %; Platelet Count 326 10^3/uL (130-400); RBC 5.35 10^6/uL (4.36-5.78); RDW 12.4 % (11.8-14.1); RDW-SD 40.8 fL; WBC 7.84 10^3/uL (4.4-10.8)
[2023-10-13] MEDS: nitroGLYcerin 0.4 MG TAB SL ×2 (06:15→06:23)
[2023-10-13 06:22] LABS: PTT Activated 26.4 sec (23.6-32.8); Prothrombin Time 10.1 sec (9.1-11.1)
[2023-10-13 06:27] LABS: ALT 16 U/L (16-63); AST 17 U/L (15-37); Alkaline Phosphatase 103 U/L (46-116); Anion Gap 11.2 mmol/L (3-11); BUN 6 mg/dL (7-18); Bilirubin, Total 0.33 mg/dL (0.2-1.0); CO2 28.8 mmol/L (21.0-32.0); Calcium 9.2 mg/dL (8.5-10.1); Chloride 106 mmol/L (98-107); Estimated GFR 93.42 (mL/min/1.73m2); Glucose 114 mg/dL (74-106); Potassium 3.4 mmol/L (3.5-5.1); Sodium 146 mmol/L (136-145); Total Protein 7.7 g/dL (6.4-8.2)
[2023-10-13 06:35] LABS: Troponin I 528 ng/L (< or =60)
[2023-10-13] MEDS: Clopidogrel 300 MG TAB PO ×2 (06:53→09:13)
[2023-10-13] MEDS: Atorvastatin 40 MG TAB PO (06:53)
[2023-10-13] MEDS: Heparin in 0.45% NaCl 25,000 UNIT/250 ML BAG 10 UNIT IV (06:54)
--- NOTE | 2023-10-13 06:54 | W.ED.GENAD ---
Discharge Plan Discharge Details Chief Complaint: Chest Pain Clinical Impression: Non-ST elevation [place] (NSTEMI) Primary Care Provider: Madan Metz ED Provider: Kiko Velazquez Home Meds and New Rx's Prescriptions: No Action albuterol sulfate 90 mcg/actuation HFA aerosol inhaler 2 puff inhalation Q6H PRN omeprazole 40 mg capsule,delayed release(DR/EC) 40 mg PO DAILY acetaminophen 500 mg Tablet 1,000 mg PO PRN PRN HPI General Date/Time Provider Initiated Documentation: 10/13/23 05:54. HPI Narrative: 48-year-old male with past medical history of reactive airway disease, high cholesterol, reflux, presents today for evaluation of chest pain. 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 He denies any history of cardiac disease. He does have a family history of cardiac disease though. He does smoke tobacco. He denies any drug use. No tearing or ripping sensation, no syncope. He describes the pain as a notable tightness. No pleuritic chest pain. He states that over the last week or so he has not had any exertional dyspnea or any other abnormalities. Related Data Home Medications ?Medication ?Instructions ?Recorded ?Confirmed acetaminophen 500 mg tablet 1,000 mg PO PRN PRN 03/11/21 10/13/23 omeprazole 40 mg capsule,delayed 40 mg PO DAILY 04/05/23 10/13/23 release albuterol sulfate 90 mcg/actuation 2 puff inhalation Q6H PRN 04/25/23 10/13/23 aerosol inhaler Allergies Allergy/AdvReac Type Severity Reaction Status Date / Time clindamycin Allergy Unknown abdominal Unverified 10/13/23 06:12 pain codeine AdvReac Intermediate nausea/vomo Unverified 10/13/23 06:12 ting General Stated Complaint: Chest Pain ABHISHEK: 2 Review of Systems All systems reviewed & are unremarkable except as noted in HPI and below Exam Narrative Exam Narrative: 1.Const: Well-nourished, Well-developed, appearing stated age 2.Eyes: PERRL, no conjunctival injection, and symmetrical lids. 3.ENT: Atraumatic external nose and ears. Moist MM. Neck: Symmetric, trachea midline, No thyromegaly. 4.CVS: +S1/S2, No murmurs or gallops. Peripheral pulses 2+ and equal in all extremities. Brisk capillary refill in all extremities. 5.RESP: Unlabored respiratory effort. Clear to auscultation bilaterally. No wheezes rales or rhonchi 6.GI: Soft, Nontender/Nondistended, No hepatosplenomegaly. No guarding or rebound. 7.MSK: Normocephalic/Atraumatic, Extremities w/o deformity or ttp No cyanosis or clubbing, Normal movement of all extremities 8.Skin: Warm, Dry. No rashes or lesions. 9.Neuro: nuclear medicine technologist II-XII grossly intact. Sensation grossly intact, no focal neurologic deficits. 10.Psych: (AAO) x3. Appropriate mood and affect Course Vital Signs Vital signs: Vital Signs Temperature 36.6 C 10/13/23 05:57 Pulse 56 L 10/13/23 05:57 Respiratory Rate 14 10/13/23 05:57 Blood Pressure 120/87 10/13/23 05:57 Pulse Oximetry 100 10/13/23 05:57 Temperature 36.6 C 10/13/23 05:57 Pulse 54 L 10/13/23 06:23 Pulse 57 L 10/13/23 06:23 Respiratory Rate 14 10/13/23 06:23 Respiratory Effort Short of Breath 10/13/23 06:07 Respiratory Depth Normal 10/13/23 06:07 Respiratory Pattern Normal 10/13/23 06:07 Blood Pressure 109/74 10/13/23 06:23 Blood Pressure Mean 84 10/13/23 06:23 Blood Pressure Position Supine 10/13/23 05:57 Pulse Oximetry 97 10/13/23 06:23 Oxygen Delivery Method Room Air 10/13/23 05:57 Oxygen Flow Rate 0 10/13/23 05:57 Pain Level 8 10/13/23 06:07 Lab/Test Results Lab/Test Results: Laboratory Tests Range/Units 10/13/23 06:00 WBC (4.4-10.8) 10^3/uL 7.84 RBC (4.36-5.78) 10^6/uL 5.35 Hgb (13.5-17.5) g/dL 16.1 Hct (40.0-50.0) % 48.6 MCV (80-95) fL 91 MCH (27.0-33.0) pg 30.1 MCHC (32.0-36.0) % 33.1 RDW (11.8-14.1) % 12.4 Plt Count (130-400) 10^3/uL 326 MPV (8.0-11.0) fL 9.2 Immature Gran % % 0.3 Neutrophils % % 66.1 Lymphocytes % % 26.5 Monocytes % % 5.7 Eosinophils % % 1.1 Basophils % % 0.3 Nucleated RBC % (0.0-0.3) % 0.0 Absolute Neutrophils (1.2-6.7) 10^3/uL 5.18 Absolute Lymphocytes (1.2-3.4) 10^3/uL 2.08 Absolute Monocytes (0.1-0.8) 10^3/uL 0.45 Absolute Eosinophils (0.0-0.7) 10^3/uL 0.09 Absolute Basophils (0.0-0.2) 10^3/uL 0.02 PT (9.1-11.1) sec 10.1 INR (0.9-1.1) 1.0 APTT (23.6-32.8) sec 26.4 Sodium (136-145) mmol/L 146 H Potassium (3.5-5.1) mmol/L 3.4 L Chloride (98-107) mmol/L 106 Carbon Dioxide (21.0-32.0) mmol/L 28.8 Anion Gap (3-11) mmol/L 11.2 H BUN (7-18) mg/dL 6 L Creatinine (0.70-1.30) mg/dL 1.0 Est GFR (CKD-EPI 2020) (mL/min/1.73m2) 93.42 Glucose (74-106) mg/dL 114 H Calcium (8.5-10.1) mg/dL 9.2 Total Bilirubin (0.2-1.0) mg/dL 0.33 AST (15-37) U/L 17 ALT (16-63) U/L 16 Alkaline Phosphatase (46-116) U/L 103 Troponin I (< or =60) ng/L 528 H* Total Protein (6.4-8.2) g/dL 7.7 Albumin (3.4-5.0) g/dL 4.0 Medical Decision Making 48-year-old male with past medical history of reactive airway disease, high cholesterol, reflux, presents today for evaluation of chest pain. 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 He denies any history of cardiac disease. He does have a family history of cardiac disease though. He does smoke tobacco. He denies any drug use. No tearing or ripping sensation, no syncope. He describes the pain as a notable tightness. No pleuritic chest pain. He states that over the last week or so he has not had any exertional dyspnea or any other abnormalities. Exam demonstrates well-appearing male, mild distress, vital signs stable. Radial pulses equal bilaterally. No reproducible chest pain on chest wall exam. EKG shows evidence of slight atypical less than a millimeter elevation in V2, no depressions. Inverted T wave is present in lead III. Differential is high for ACS/unstable angina, dissection seems unlikely based on exam and history. PE seems unlikely. Musculoskeletal etiology of concern but less likely. Pneumothorax of concern. Will evaluate for these etiologies, give full dose aspirin, given nitroglycerin, monitor closely and reassess. EKG: Sinus bradycardia, rate 57, less than a millimeter of elevation in V2, no reciprocal depressions. Inverted T wave present in lead III. No STEMI. 7 AM Laboratory workup shows no white count bandemia or left shift. Electrolytes demonstrate a sodium of 146, potassium 3.4, renal function stable. Initial troponin is elevated at 520. Differential still remains high for ACS/unstable angina. Patient will be heparinized, will give 300 of Plavix, atorvastatin, continue to monitor closely and reach out to [facility]. After 2 nitroglycerin the pain completely resolved for the patient. Will continue to monitor closely. Patient will be signed out to my colleague Dr. Flores for follow-up on [facility]. Quality:[facility] Health Related Social Needs: No Data to Display Critical Care Time Critical Care Time Critical Care Time: Yes Total Critical Care Time: 45 Attestation: Upon my evaluation, this patient had a high probability of imminent or life-threatening deterioration, which required my direct attention, intervention, and personal management. I have personally provided 45 minutes of critical care time exclusive of time spent on separately billable procedures. Time includes review of laboratory data, radiology results, discussion with consultants, and monitoring for potential decompensation. Interventions were performed as documented. PFSH All Active Problems (Updated 10/13/23 @ 08:04 by Kiko Velazquez DO) Non-ST elevation DC (NSTEMI) (Acute) Medical History Carpal tunnel syndrome Ganglion cyst Atopic dermatitis Reactive airways dysfunction syndrome Hyperlipidemia Pain of right shoulder region GERD (gastroesophageal reflux disease) Surgical History H/O wisdom tooth extraction History of surgical removal of pilonidal cyst Family History Brother Hyperlipidemia Father Mental disorder Social History Smoking/Tobacco Use Status: Former Tobacco Use Quit Date: 08/15/21 Smoking risk assessment performed?: Yes Alcohol Intake: never Drug use: Daily Substance use type: marijuana Do you feel safe at home: Yes Do you feel safe in your relationship?: Yes POCUS Exam (ED) Limited Cardiac Exam DATE OF EXAM: 10/13/23 TIME OF EXAM: 07:18 PROVIDER THAT PERFORMED THE STUDY: Kiko Velazquez REASON FOR EXAM: Chest pain VISUALIZED STRUCTURES: Left atrium, Left ventricle, Right ventricle, Mitral valve and Interventricular septum VIEW OBTAINED: Parasternal long-axis PERTINENT FINDINGS/IMPRESSION: No apparent abnormalities Exam complete
--- NOTE | 2023-10-13 07:26 | DI.VRAD_ITS ---
PROCEDURE INFORMATION: Exam: XR Chest Exam date and time: 10/13/2023 6:41 AM Age: 48 years old Clinical indication: Other: Chest discomfort TECHNIQUE: Imaging protocol: Radiologic exam of the chest. Views: 1 view. COMPARISON: CR XR CHEST 2V PA LATERAL 11/15/2021 12:02 PM FINDINGS: Lungs: Unremarkable. No consolidation. Pleural spaces: Unremarkable. No pleural effusion. No pneumothorax. Heart/Mediastinum: The cardiomediastinal silhouette is fairly stable in appearance, allowing for differences in technique. Bones/joints: Unremarkable. IMPRESSION: No evidence for acute pulmonary disease. Dictated and Authenticated by: Bob Chinchilla MD. Ordering:GEE Hoover MD
[2023-10-13 09:22] LABS: Troponin I 668 ng/L (< or =60)
--- NOTE | 2023-10-13 09:53 | W.EDPROG ---
Date of service: 10/13/23 Time of Service: 09:53 Medical Decision Making Second troponin over 600, patient remains pain-free currently on a heparin infusion. I spoke to the cardiology PA Artem Roth at [facility] reviewed the case and recommended adding 300 mg more of clopidogrel. Accepted for transfer when they have a bed available which states that should happen today. The accepting provider is Dr. Lagos, patient updated and is in agreement with the plan. Quality:[facility] Health Related Social Needs: No Data to Display Sign Out Sign Out Data: Sign Out Comment: Chest pain, NSTEMI, follow-up on [facility] consult Last updated by Kiko Velazquez DO at 10/13/23 08:05 Discharge Plan Disposition Specific Acute Inpt Facility: [facility] Condition: Serious Discharge Details Chief Complaint: Chest Pain Clinical Impression: Non-ST elevation [place] (NSTEMI) Primary Care Provider: Madan Metz ED Provider: Bob Flores Home Meds and New Rx's Prescriptions: No Action albuterol sulfate 90 mcg/actuation HFA aerosol inhaler 2 puff inhalation Q6H PRN omeprazole 40 mg capsule,delayed release(DR/EC) 40 mg PO DAILY acetaminophen 500 mg Tablet 1,000 mg PO PRN PRN
[2023-10-13 14:54] LABS: Troponin I 985 ng/L (< or =60)
== END 2023-10-13 16:13 | disposition short-term general hospital (02) ==
LOC: ER 08:52
PROVIDERS: Student in an Organized Health Care Education/Training Program; Emergency Provider Emergency Medicine; PCP Physician Assistant
DX: I21.4 Non-ST elevation (NSTEMI) myocardial infarction (principal); J45.909 Unspecified asthma, uncomplicated; E78.00 Pure hypercholesterolemia, unspecified; E78.5 Hyperlipidemia, unspecified; Z87.891 Personal history of nicotine dependence
CPT/HCPCS: 00123; 36415; 80053; 93005; 93308; 96360; 99285; 71045; 84484; 85025; 85610; 85730; 93010; 99284; J1644

== ENCOUNTER 2024-10-26 09:44 | Emergency (ER) | payer SELFPAY ==
[2024-10-26 09:47] VITALS: BP 133/87; PULSE 83; RESP 16; TEMP 36.7; O2SAT 95
--- NOTE | 2024-10-26 10:00 | DI.US_ITS ---
Exam(s) US LOWER EXTREMITY VENOUS LT EXAM: US LOWER EXTREMITY VENOUS LT CLINICAL HISTORY: L inner thigh swelling/pain, eval DVT vs lymph,etc. TECHNIQUE: Lower extremity venous ultrasound performed using grayscale, color- flow, and spectral Doppler analysis. COMPARISON: No exams were available for comparison FINDINGS: The common femoral, femoral and popliteal veins demonstrate normal compressibility, augmentation, and color Doppler. The posterior tibial and peroneal veins are patent. No saphenous vein thrombosis or other superficial venous thrombosis is seen. No Zapien's cyst is seen. There is a large lobulated hypoechoic area in the medial mid thigh corresponding to the area of palpable abnormality. It measures over 10 cm in length there finding could represent hematomas however masses are not excluded. May be 1 or large lesion or 2 adjacent lesions. IMPRESSION: No evidence of DVT. Hematoma versus mass in the medial thigh. MRI could be considered further evaluation. Findings called to Dr. Alvarado of the emergency department. DATA REPOSITORY:
--- NOTE | 2024-10-26 10:34 | W.ED.GENAD ---
Discharge Plan Disposition Patient Disposition: Home Condition: Stable Discharge Details Clinical Impression: Mass of left thigh, Low back pain Primary Care Provider: Madan Metz ED Provider: Luzmaria Alvarado Home Meds and New Rx's Prescriptions: New oxycodone 5 mg tablet 5 mg PO Q8H PRNQty: 7 0RF No Action albuterol sulfate 90 mcg/actuation HFA aerosol inhaler 2 puff inhalation Q6H PRN omeprazole 40 mg capsule,delayed release(DR/EC) 40 mg PO DAILY acetaminophen 500 mg Tablet 1,000 mg PO PRN PRN clopidogrel 75 mg tablet 75 mg PO DAILY aspirin 81 mg tablet 81 mg PO DAILY atorvastatin [Lipitor] 80 mg tablet 80 mg PO QPM Discharge Instructions Instructions: Low Back Pain (DC) Additional Instructions: You were seen in the emergency department today for evaluation of low back pain and a mass in your thigh. In our department you do full physical examination performed, and you had imaging studies of your thigh including an ultrasound and an MRI. This appears to be a mass that will require biopsy and likely removal. Our team recommends that you follow-up with Dr. Jesse Javier [place] [facility] we have sent a referral to their clinic. Please contact them by phone if you have not heard from them in the next few days, use the number and ask to be transfered to their clinic. Regarding your low back pain I recommend multimodal pain management using heat or ice, gentle stretching, and Lidoderm patches. Please use therapeutic dosing of Tylenol (acetaminophen) & Advil (ibuprofen) in an alternating fashion as follows: Take 1000mg of Tylenol every 6 hours without missing doses- that is 4 times per day. [place] in between the Tylenol doses, take 600mg of Advil also on a 6 hour schedule, that is also 4 times per day. With this strategy, you will be taking something for fever/pain as often as every 3 hours. The daily maximum dosing of Tylenol is 4000mg, and the daily maximum dosing of Advil is 2400mg. Please note that some common cold medications & prescription pain medications may contain acetaminophen and you need to read OTC drug labels and factor that in to maximum daily doses. Because of your aspirin and Plavix use you should not take the ibuprofen for an extended period of time. Please discuss ongoing medication use with your provider at your scheduled visit on . I have sent you a short prescription of oxycodone to use for breakthrough pain until that visit. Please avoid driving or operating machinery while on this medication as it can cause drowsiness. Please follow-up with your primary care provider in the next few days to discuss this visit and any symptoms that change, worsen, or persist. Thank you for allowing us to be part of your care. Stand Alone Forms: Work Release Referrals: Jesse Javier [ NON-[facility] STAFF PHYSICIAN] [facility] General Mode of arrival: ambulatory. Date/Time Provider Initiated Documentation: 10/26/24 09:45. Limitations to Documentation: no limitations. Information obtained by: patient, family and old records reviewed. HPI Narrative: This is a 49-year-old male patient with a past medical history significant for CAD/NSTEMI, hyperlipidemia, and reactive airway disease, presenting for evaluation of leg swelling and lower back pain. The patient reports that he has some chronic lower back pain that has been gradually worsened over the last week and a half. States that he has a very physical job, his pain is located bilaterally in the lower lumbar region, worse with movement, takes Tylenol and Lidoderm patches at home without significant improvement. He is back pain did not worsen in the context of any trauma, falls, or injuries. He states that he has not had any numbness, tingling, weakness in his lower extremities. He states that he has not noted any bowel or bladder incontinence or urinary retention. No unintentional weight loss, fevers, night sweats. Additionally, the patient reports a 1 month history of localized swelling on his left upper inner thigh. 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 Since that time he has noted a painful swelling approximately 6 x 6 cm, no overlying skin changes though it does feel slightly warm at times. He has not noted any swelling anywhere else, does not have injury or infection distal to this area, no inguinal swelling or tenderness. Related Data Home Medications ?Medication ?Instructions ?Recorded ?Confirmed acetaminophen 500 mg tablet 1,000 mg PO PRN PRN 03/11/21 10/26/24 omeprazole 40 mg capsule,delayed 40 mg PO DAILY 04/05/23 10/26/24 release albuterol sulfate 90 mcg/actuation 2 puff inhalation Q6H PRN 04/25/23 10/26/24 aerosol inhaler aspirin 81 mg tablet 81 mg PO DAILY 10/26/24 10/26/24 atorvastatin 80 mg tablet (Lipitor) 80 mg PO QPM 10/26/24 10/26/24 clopidogrel 75 mg tablet 75 mg PO DAILY 10/26/24 10/26/24 oxycodone 5 mg tablet 5 mg PO Q8H PRN #7 tabs 10/26/24 Previous Rx's ?Medication ?Instructions ?Recorded oxycodone 5 mg tablet 5 mg PO Q8H PRN #7 tabs 10/26/24 Allergies Allergy/AdvReac Type Severity Reaction Status Date / Time clindamycin Allergy Unknown abdominal Unverified 10/26/24 09:52 pain codeine AdvReac Intermediate nausea/vomo Unverified 10/26/24 09:52 ting General Stated Complaint: Nk/Back Pain ABHISHEK: 4 Exam Narrative Exam Narrative: Gen: Awake and alert, in no apparent distress HEENT: Non-icteric sclera Neck: Supple Lungs: No apparent respiratory distress, normal respiratory effort. CV: Appears well perfused, strong distal pulses, heart with regular rate and rhythm Abdomen: Non-distended MSK: Moves 4 extremities without apparent limitation in ROM. The patient's lower back is tender to palpation over the bilateral SI joint region, no midline spine pain or step-offs, no overlying skin changes. The patient does have reproduction of pain with flexion and extension of the low back. The patient has an area of nodular swelling on the proximal aspect of the left inner thigh, with no overlying redness or induration. It is tender to palpation. Distally the patient has no peripheral edema, unilateral calf swelling or tenderness, and has strong and symmetrical TP pulses. Skin: Visualized skin without rashes, cyanosis. Neuro: Normal Gait, no obvious focal deficits or facial asymmetry, 5 out of 5 strength in the bilateral lower extremities, preserved sensation. Speaks in full, clear sentences. Psych: Appropriate for situation. Course Vital Signs Vital signs: Vital Signs Temperature 36.7 C 10/26/24 09:47 Pulse 83 10/26/24 09:47 Respiratory Rate 16 10/26/24 09:47 Blood Pressure 133/87 10/26/24 09:47 Pulse Oximetry 95 10/26/24 09:47 Temperature 36.7 C 08/12/25 09:47 Temperature Source Oral 10/26/24 09:47 Pulse 83 10/26/24 09:47 Respiratory Rate 16 10/26/24 09:47 Blood Pressure 133/87 10/26/24 09:47 Pulse Oximetry 95 10/26/24 09:47 Oxygen Delivery Method Room Air 10/26/24 09:47 Oxygen Flow Rate 0 10/26/24 09:47 Medical Decision Making This is a 49-year-old male patient presenting for evaluation of localized leg swelling as well as low back pain. My differential includes but is not limited to DVT, lymphadenopathy, certainly considered superficial venous thrombosis, pseudoaneurysm. Exam is less consistent with cellulitis or abscess, hematoma was also considered. I note no evidence for arterial occlusion. Considered low back pain etiologies including lumbar disc disease, sacroiliitis, degenerative changes. The patient has no radicular symptoms to suggest sciatica or nerve root compression, considered spinal stenosis, no red flag symptoms for spinal cord compressive syndrome such as cauda equina, spinal epidural abscess, spinal hematoma. I will provide the patient with a dose of Toradol (patient on dual antiplatelet therapy, would continue to discourage long-term therapy but a short-term/single dose may be of greater benefit in controlling his acute pain) as well as a dose of oxycodone. No muscular spasms palpable and the patient reports minimal benefit in the past with muscle relaxers. I do not see an indication to pursue advanced imaging of his spine at this time given the lack of definitive trauma or spinal cord compression symptoms. He does have follow-up in the outpatient environment for his low back in 2 days. Regarding the swelling in his leg we will begin our workup with an ultrasound to evaluate for DVT, lymphadenopathy, or other structural abnormalities. - Ultrasound without evidence of DVT or pseudoaneurysm, but does appreciate the large mass in the thigh. Radiology recommended MRI imaging for better characterization. This was performed with and without contrast, and demonstrates a 7 x 3 x 3.5 cm enhancing mass, which may represent sarcoma, nerve sheath tumor, or histiocytoma. After discussion with general surgery the decision was made to refer this patient to [facility] [place]ology/orthopedics for biopsy and removal. The findings were shared with the patient and he had an opportunity to have all questions answered to his satisfaction. I provided him with a short course of oxycodone to use for breakthrough pain in addition to multimodal pain management for his low back pain, and he will follow-up at his scheduled appointment with his primary care provider in 2 days. At this time, the patient has had a full medical evaluation and is safe for discharge to home. They are hemodynamically stable, ambulatory, and tolerating PO. They are understanding of the follow-up plan and return precautions. They left our facility without incident. Luzmaria Alvarado MD [facility] All Active Problems (Updated 10/26/24 @ 12:53 by Luzmaria Alvarado MD) Low back pain (Acute) Mass of left thigh (Acute) Medical History Carpal tunnel syndrome Ganglion cyst Atopic dermatitis Reactive airways dysfunction syndrome Hyperlipidemia Pain of right shoulder region GERD (gastroesophageal reflux disease) Surgical History H/O wisdom tooth extraction History of surgical removal of pilonidal cyst Family History Brother Hyperlipidemia Father Mental disorder Social History Smoking/Tobacco Use Status: Current-Occasional Tobacco Type: cigarettes Smoking risk assessment performed?: Yes Alcohol Intake: never Drug use: Daily Substance use type: marijuana Do you feel safe at home: Yes Do you feel safe in your relationship?: Yes
--- NOTE | 2024-10-26 10:45 | DI.MRI_ITS ---
Exam(s) MR LOWER EXTREMITY LT WO/W CLINICAL HISTORY: mass inner thigh, hip to knee please. TECHNIQUE: Multiplanar multisequence MRI was performed. CONTRAST MATERIAL: IV Contrast: 14 mL of Dotarem contrast administered. COMPARISON: Ultrasound of the same day FINDINGS: BONES: No fracture or contusion pattern. No bone lesions identified. SOFT TISSUES: There is a lobulated soft tissue mass noted in the subcutaneous fat of the medial mid thigh measuring 7.3 by 3 by 3.5 cm. There is intense enhancement of the majority of the mass. There are no fatty elements or evidence of calcifications. There are few small cystic areas. There is some impression on the sartorius muscle but no visible invasion. IMPRESSION: Large enhancing mass in the subcutaneous fat of the medial thigh. The findings could represent a benign or malignant peripheral nerve sheath tumor, malignant fibrous histiocytoma or sarcoma. Results called to Dr. Almanzar in the emergency room. DATA REPOSITORY:
[2024-10-26] MEDS: oxyCODONE 5 MG TAB PO (11:05)
[2024-10-26] MEDS: Ketorolac 15 MG/ML VIAL IM (11:05)
[2024-10-26] MEDS: Gadoterate meglumine 20 ML SYRINGE 14 ML IVP (11:42)
[2024-10-26] MEDS: Normal Saline Flush 10 ML SYR IVP (11:43)
[2024-10-26 13:15] VITALS: BP 116/79; PULSE 76; TEMP 36.8; O2SAT 97
== END 2024-10-26 13:20 | disposition home or self-care (01) ==
PROVIDERS: Emergency Provider Emergency Medicine; PCP Physician Assistant
DX: M54.50 Low back pain, unspecified (principal); R22.42 Localized swelling, mass and lump, left lower limb
CPT/HCPCS: 99284 ×2; 96374; 96375; 73720; 93971; J1885

== ENCOUNTER 2024-11-22 08:52 | Outpatient (CLI) | payer SELFPAY ==
[2024-11-22] MEDS: Barium Sulfate 2% W/V-Berry Smoothie 450 ML BTL PO (09:20)
[2024-11-22] MEDS: Barium Sulfate 2% W/V-Creamy Vanilla Smoothie 450 ML BTL PO (09:20)
[2024-11-22] MEDS: Normal Saline - Diluent 50 ML VIAL IJ (11:50)
[2024-11-22] MEDS: Omnipaque 350 MG/ML 500 ML BTL-Imaging package IJ (11:51)
[2024-11-22] MEDS: Normal Saline Flush 10 ML SYR IVP (11:51)
--- NOTE | 2024-11-22 11:52 | DI.CT_ITS ---
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 TECHNIQUE: Imaging Protocol: Axial computed tomography images with coronal and sagittal reformatted images were created and reviewed. Computer aided detection (CAD) was utilized. CONTRAST MATERIAL: Intravenous: Omnipaque 350 Contrast volume:100 ml Oral: yes COMPARISON: CT CT ABDOMEN PELVIS W from 05/26/2019 MR MR LOWER EXTREMITY LT WO/W from 10/26/2024 FINDINGS: CHEST: Pulmonary parenchyma: No consolidation. Calcified granulomas medial right lung base. No dominant measurable mass. Mild emphysematous changes. No suspicious pulmonary nodules. Benign-appearing perifissural nodule between left upper and lower lobes. Tracheobronchial tree: No bronchiectasis. No mucous plugging.No bronchial wall thickening. Pleura: No effusion or pneumothorax. Mediastinum: Within normal limits. Pulmonary arteries: No visible emboli. Cardiovascular: No pericardial effusion. Thoracic aorta non-dilated. Bones: Unremarkable for age. No lytic or blastic lesions. No compression fractures. Soft tissues: Unremarkable. ABDOMEN and PELVIS: Liver: Normal density. No suspicious mass. Gallbladder and biliary tract: No evidence of stones or wall thickening. No biliary dilatation. Pancreas: Normal density, no abnormal calcifications or inflammatory process. Spleen: Normal size. Calcified granulomas. Kidneys: Normal size, contour and axis. No radiodense stones. No obstructive uropathy. No suspicious masses seen. Adrenal glands: No masses seen. Aorta: Abdominal portion non-dilated. Lymph nodes: Within normal limits. Soft tissues: Unremarkable. Bladder: Unremarkable. Bowel: No obstruction or bowel wall thickening. The appendix is normal. Peritoneal cavity: No ascites. No focal collection. No mesenteric inflammatory response. No free air. Bones: Unremarkable for age. No lytic or blastic lesions. Reproductive organs: Unremarkable for age. IMPRESSION: No evidence of metastatic disease or other acute abnormality in the chest, abdomen or pelvis. RADIATION DOSE DELIVERED: Total DLP DATA REPOSITORY: All CT scans at this facility are submitted to the National Radiology Data Registry (NRDR) Dose Index Registry (DIR) with the [employer] (ACR). RADIATION OPTIMIZATION: All CT scans at this facility use at least one of these dose optimization techniques: automated exposure control; mA and/or kV adjustment per patient size (includes targeted exams where dose is matched to clinical indication); or iterative reconstruction.
== END 2024-11-22 09:12 ==
PROVIDERS: PCP Physician Assistant; Visit Provider Orthopaedic Surgery
DX: C49.9 Malignant neoplasm of connective and soft tissue, unspecified (principal)
CPT/HCPCS: 74177; 71260

== ENCOUNTER → 2025-01-14 03:40 | Outpatient (CLI) | payer SELFPAY ==
--- NOTE | 2025-01-14 | DI.MRI_ITS ---
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 TECHNIQUE: Multiplanar multisequence MRI of the left thigh was performed. CONTRAST MATERIAL: IV Contrast: 14 mL of Dotarem contrast administered. COMPARISON: MR MR LOWER EXTREMITY LT WO/W from 10/26/2024 FINDINGS: BONES/JOINTS: No fracture or contusion pattern. No bone lesions identified. MUSCULOTENDINOUS STRUCTURES: Please see below under soft tissues. No muscular fatty atrophy. SOFT TISSUES: There has been interval increase in size of the soft tissue mass in the medial left thigh. The mass measures 4.7 transverse by 5.2 AP by 8.6 craniocaudad cm. Using similar measuring techniques, this compares to 3.1 transverse by 4.1 AP by 7.5 craniocaudad cm on the prior examination. The mass is heterogeneously enhancing with areas of decreased attenuation internally which may represent necrosis. There is edema seen in the surrounding soft tissues and mild skin thickening and enhancement in the medial thigh. There is nonenhancing edema in the adjacent sartorius muscle. OTHER FINDINGS: None. IMPRESSION: 1. Interval increase in size and heterogeneity of the soft tissue mass in the medial thigh. There are areas of decreased attenuation which may represent necrosis. The findings would be consistent with a sarcoma. 2. Interval worsening of the subcutaneous edema since the prior examination. There is also skin thickening and enhancement in the medial thigh. This may be reflective of recent radiation treatment. 3. Mild edema seen in the adjacent sartorius muscle. This may be reactive. Infiltration by tumor should be considered. DATA REPOSITORY:
--- NOTE | 2025-01-14 | DI.CT_ITS ---
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 Lung Computer Aided Detection (CAD) was utilized. CONTRAST MATERIAL: Intravenous: Omnipaque 350 contrast volume:75 mL Oral: Yes COMPARISON: CT CHEST ABD PELVIS WO CONTRAST from 04/01/[address] ABDOMEN PELVIS W from 05/26/[address] CHEST/ABD/PEL W from 11/22/2024 FINDINGS: CHEST: Tracheobronchial tree: Patent where visualized. No evidence of bronchiectasis. Pulmonary parenchyma: Centrilobular emphysematous changes are present. There is a calcified granuloma in the right lower lobe. There are no pulmonary nodules or focal infiltrates. There is a small perifissural nodule associated with the superior aspect of the right major fissure and a perifissural nodule seen associated with the left major fissure. These are unchanged in were present on the CT scan of the chest from 04/01/2011. Visualized thyroid gland: Unremarkable. Mediastinum and [place]: No dominant adenopathy or fluid collection. The esophagus is unremarkable. Calcified lymph nodes are seen in the mediastinum and right hilum. This is consistent with prior granulomatous disease. Pleura: No effusion or pneumothorax. Heart: The heart is not dilated. No coronary artery calcifications are seen. No pericardial effusion. Pulmonary arteries: No pulmonary emboli are identified. Aorta: Thoracic aorta non-dilated. There is no evidence of an aortic dissection. Lymph nodes: Within normal limits. Soft tissues: Unremarkable. Bones:Within normal limits for the patient's age. ABDOMEN: Liver: Normal density. No measurable mass. Portal, Superior Mesenteric, and Splenic Veins: Unremarkable. Gallbladder and Biliary Tract: No radiodense calculus or dilation. Pancreas: Normal density, no abnormal calcifications or inflammatory process. Spleen: Calcified granuloma are present in the spleen. Adrenals: No masses seen. Kidneys: Normal size, contour and axis. No radiodense stones or obstructive uropathy. No masses seen. Abdominal Aorta: Abdominal portion non-dilated. Mild atherosclerotic calcification is present. Bowel: No obstruction or bowel wall thickening. Appendix is unremarkable. The stomach is incompletely distended limiting evaluation. Peritoneal Cavity: No ascites, collection or mesenteric inflammatory response. No free air. Lymph Nodes: Within normal limits. Bones: Within normal limits for the patient's age. Soft Tissues: Unremarkable. PELVIS: Bladder: The bladder is incompletely distended but grossly unremarkable. Reproductive Organs: Unremarkable as visualized. Lymph Nodes: Within normal limits. Bones: Within normal limits. IMPRESSION: 1. There is no evidence of abdominal or pelvic metastatic disease. 2. There is no acute chest, abdominal or pelvic process. 3. No evidence of thoracic metastatic disease. RADIATION DOSE DELIVERED: 752.19mGy.cm Total DLP DATA REPOSITORY: All CT scans at this facility are submitted to the National Radiology Data Registry (NRDR) Dose Index Registry (DIR) with the [employer] (ACR). RADIATION OPTIMIZATION: All CT scans at this facility use at least one of these dose optimization techniques: automated exposure control; mA and/or kV adjustment per patient size (includes targeted exams where dose is matched to clinical indication); or iterative reconstruction.
[2025-01-14] MEDS: Barium Sulfate 2% W/V-Creamy Vanilla Smoothie 450 ML BTL PO (12:13)
[2025-01-14] MEDS: Barium Sulfate 2% W/V-Berry Smoothie 450 ML BTL PO (12:13)
[2025-01-14] MEDS: Normal Saline - Diluent 50 ML VIAL IJ (14:23)
[2025-01-14] MEDS: Omnipaque 350 MG/ML 100 ML BTL IJ (14:24)
[2025-01-14] MEDS: Normal Saline Flush 10 ML SYR IVP ×2 (14:24→15:44)
[2025-01-14] MEDS: Gadoterate meglumine 20 ML VIAL 14 ML IVP (15:42)
== END ==
PROVIDERS: PCP Physician Assistant; Visit Provider Physician Assistant
DX: C49.22 Malignant neoplasm of connective and soft tissue of left lower limb, including hip (principal)
CPT/HCPCS: 74177; 71260; 73720; 82565; J3490

== ENCOUNTER 2025-01-28 14:46 | Outpatient (REF) | payer SELFPAY ==
[2025-01-28 21:05] LABS: HCT 33.7 % (40.0-50.0); HGB 10.5 g/dL (13.5-17.5); MCH 26.3 pg (27.0-33.0); MCHC 31.2 % (32.0-36.0); MCV 85 fL (80-95); MPV 9.4 fL (8.0-11.0); Platelet Count 624 10^3/uL (130-400); RBC 3.99 10^6/uL (4.36-5.78); RDW 13.5 % (11.8-14.1); RDW-SD 41.6 fL; WBC 7.57 10^3/uL (4.4-10.8)
[2025-01-28 21:30] LABS: ALT 36 U/L (10-49); AST 28 U/L (<34); Albumin 3.4 g/dL (3.4-5.0); Alkaline Phosphatase 105 U/L (46-116); Anion Gap 7.8 mmol/L (3-11); BUN 8 mg/dL (9-23); Bilirubin, Total 0.40 mg/dL (0.2-1.2); CO2 30.2 mmol/L (20.0-31.0); Calcium 8.7 mg/dL (8.3-10.6); Chloride 102 mmol/L (98-107); Cholesterol 97 mg/dL (<200); Glucose 121 mg/dL (74-106); HDL Cholesterol 36 mg/dL (>40); Potassium 4.1 mmol/L (3.5-5.1); Sodium 140 mmol/L (136-145); Total Protein 6.6 g/dL (5.7-8.2)
== END 2025-01-28 14:47 | disposition home or self-care (01) ==
LOC: NCHCN 14:46
PROVIDERS: PCP Physician Assistant; Visit Provider Physician Assistant
DX: I25.10 Atherosclerotic heart disease of native coronary artery without angina pectoris (principal)
CPT/HCPCS: 80053; 80061; 85027